=== PATIENT | male | born 1980 | race Two or more races ===

== ENCOUNTER 2016-07-29 00:11 | Emergency (ER) | payer MEDICAID ==
--- NOTE | 2016-07-29 00:41 | ED Physician Chart ---
Chief Complaint/HPI - Patient Information Date Seen:: 07/29/16 Time Seen:: 00:30 Chief Complaint:: shaking of right arm and right leg History of Present Illness:: when tried to go to sleep [place] had shaking of right arm and right leg which have now subsided. Discharged from 6 day psych hold yesterday. Has had one prior episode of right leg shaking. Allergies:: Allergies Allergy/AdvReac Type Severity Reaction Status Date / Time No Known Allergies Allergy Verified 07/16/16 06:56 Vitals:: Vital Signs - 8 hr 07/29/16 00:27 Temp 98.1 F HR 96 RR 19 BP 137/86 O2 Sat % 98 Historian:: Patient Review:: Nurse's Note Reviewed Review of Systems - Review of Systems General/Constitutional: No fever, No chills Skin: No skin lesions Head: No headache Eyes: No loss of vision ENT: No earache Neck: No neck pain Cardio Vascular: No chest pain Pulmonary: No SOB GI: No nausea, No vomiting G/U: No dysuria Musculoskeletal: No bone or joint pain Endocrine: No polyuria Psychiatric: Prior psych history Hematopoietic: No bruising Allergic/Immuno: No urticaria Neurological: No syncope Past Medical History - Past Medical History Past Medical History: Other Family History: None Social History: Smoker, No Alcohol Surgical History: None Psychiatricy History: Depression, Schizophrenia Medication: Reviewed Family Medical History - Family Member Mother History Unknown: Yes Ethnicity: Living Status: Still Living Hx Family Cancer: No Hx Family Coronary Artery Disease: No Hx Family Congestive Heart Failure: No Hx Family Hypertension: No Hx Family Stroke: No Hx Family Diabetes: No Hx Family Seizures: No Hx Family Dementia: No Hx Family AIDS: No Hx Family HIV: No Hx Family COPD: No Hx Family Hepatitis: No Hx Family Psychiatric Problems: No Hx Family Tuberculosis: No Physical Exam - Physical Examination General/Constitutional: Well-developed, well-nourished, Alert, No distress Head: Atraumatic Eyes: Lids, conjuctiva normal Skin: Nl inspection, No rash ENMT: External ears, nose nl, Nasal exam nl, Lips, teeth, gums nl, Oropharynx nl , Tonsils nl Other ENMT comments:: bilateral cerumenosis Neck: No nuchal rigidity Respiratory: Nl effort/Exclusion, Clear to Auscultation Cardio Vascular: RRR GI: No tenderness/rebounding/guarding, No organomegaly : No CVA tenderness Extremities: No tenderness or effusion Neuro/Psych: Alert/oriented, Mood normal, No focal deficits ED Septic Shock - . Is Septic Shock (SBP<90, OR Lactate>4 mmol\L) present?: No - <6hrs of presentation: Vital Signs: Vital Signs - 8 hr 07/29/16 00:27 Temp 98.1 F HR 96 RR 19 BP 137/86 O2 Sat % 98 Reassessment (Disposition) - Reassessment Reassessment Condition:: Improved - Diagnosis Diagnosis:: dystonic reaction - Aftercare/Follow up Instructions Medication Prescribed:: benadryl 50 mg #30 Sig 1 QID - Patient Disposition Discharge/Transfer:: Home Condition at Disposition:: Stable, Improved
== END 2016-07-29 01:05 | disposition home or self-care (01) ==
LOC: ER 00:11
DX: G24.02 Drug induced acute dystonia (principal); F17.200 Nicotine dependence, unspecified, uncomplicated

== ENCOUNTER 2016-07-30 10:05 | Emergency (ER) | payer MEDICAID ==
--- NOTE | 2016-07-30 10:28 | ED Physician Chart ---
Chief Complaint/HPI - Patient Information Date Seen:: 07/30/16 Time Seen:: 10:08 Chief Complaint:: paranoia History of Present Illness:: 35-year-old male with history of schizophrenia, brought in with acute, constant , moderate, paranoia since last night. Started after he does drink alcohol and smoke cigarettes. Says that exacerbated his paranoia. Has associated hearing "voices" in his head. Typically schizophrenia is controlled with Haldol intramuscular injections every monthly. Denies any suicidal thoughts or ideations. Allergies:: Allergies Allergy/AdvReac Type Severity Reaction Status Date / Time No Known Allergies Allergy Verified 07/30/16 10:19 Vitals:: Vital Signs - 8 hr 07/30/16 10:23 Temp 98.5 F HR 104 RR 18 BP 138/91 O2 Sat % 98 Historian:: Patient, EMS Review:: Nurse's Note Reviewed, EMS run form Reviewed Review of Systems - Review of Systems Other: Complete system review otherwise unremarkable except as noted in HPI. Past Medical History - Past Medical History Past Medical History: Other (schizophrenia) Family History: None Social History: Smoker, Alcohol, No Drug Use, Single Surgical History: None Psychiatricy History: Schizophrenia Medication: Reviewed Family Medical History - Family Member Mother History Unknown: Yes Ethnicity: Living Status: Still Living Hx Family Cancer: No Hx Family Coronary Artery Disease: No Hx Family Congestive Heart Failure: No Hx Family Hypertension: No Hx Family Stroke: No Hx Family Diabetes: No Hx Family Seizures: No Hx Family Dementia: No Hx Family AIDS: No Hx Family HIV: No Hx Family COPD: No Hx Family Hepatitis: No Hx Family Psychiatric Problems: No Hx Family Tuberculosis: No Physical Exam - Physical Examination Other:: INITIAL VITAL SIGNS: Reviewed by me GENERAL: Alert and interactive. No acute distress HEAD: Head is normocephalic and atraumatic EYES: EOMI. . No scleral icterus. No conjunctival injection ENT: Moist mucous membranes. NECK: Supple. No masses. Full range of motion RESPIRATORY: No tachypnea. Clear breath sounds bilaterally. No wheezing, rales, or rhonchi CV: Regular rate and rhythm. No murmurs, rubs, or gallops ABDOMEN: Soft, non-distended, non-tender. No guarding. No rebound. No masses. EXTREMITIES: No deformity. No cyanosis. No edema. SKIN: Warm and dry. No obvious rashes. NEUROLOGIC: Alert and oriented. Face is symmetric. Speech is normal. Moves all extremities equally. Motor and sensory distally intact. Labs/Radiology/EKG Results - Lab Results Results: Lab Results 07/30/16 07/30/16 07/30/16 Range/Units 10:32 10:40 10:40 WBC 14.6 H D (4.8-10.8) Th/cmm RBC 5.42 (4.30-5.70) Mil/cmm Hgb 15.2 (13.2-17.3) gm/dL Hct 44.2 (39.0-49.0) % MCV 81.6 (80-99) fl MCH 28.0 (26.0-30.0) pg MCHC Differential 34.3 (28.0-36.0) pg RDW 12.8 (11.5-20.0) % Plt Count 328 (150-400) Th/cmm MPV 7.1 fl Neutrophils % 81.1 H (40.0-80.0) % Lymphocytes % 11.8 L (20.0-50.0) % Monocytes % 6.7 (2.0-10.0) % Eosinophils % 0.2 (0.0-5.0) % Basophils % 0.2 (0.0-2.0) % Sodium 135 L (136-145) mEq/L Potassium 4.0 (3.5-5.1) mEq/L Chloride 101 (98-107) mEq/L Carbon Dioxide 26.9 (21.0-31.0) mEq/L Anion Gap 11.1 (7.0-16.0) BUN 15 (7-25) mg/dL Creatinine 0.9 (0.7-1.3) mg/dL Est GFR ( Amer) > 60.0 ml/min Est GFR (Non-Af Amer) > 60.0 ml/min BUN/Creatinine Ratio 16.7 Glucose 117 H (70-105) mg/dL Calcium 10.0 (8.6-10.3) mg/dL Triglycerides 84 (<150) mg/dL Cholesterol 173 (<200) mg/dL LDL Cholesterol Direct 116 (75-193) mg/dL HDL Cholesterol 45 (23-92) mg/dL Urine Source CLEAN C Urine Color YELLOW Urine Clarity CLEAR (CLEAR) Urine pH 7.0 Ur Specific [place] 1.025 (1.005-1.030) Urine Protein 30 H (NEGATIVE) mg/dL Urine Glucose (UA) NEGATIVE (NEGATIVE) mg/dL Urine Ketones NEGATIVE (NEGATIVE) mg/dL Urine Blood TRACE (NEGATIVE) Urine Nitrate NEGATIVE (NEGATIVE) Urine Bilirubin NEGATIVE (NEGATIVE) Urine Urobilinogen 0.2 (0.2 - 1.0) E.U./dL Ur Leukocyte Esterase NEGATIVE (NEGATIVE) Urine RBC 0-2 H (0-5) /hpf Urine WBC 0-2 (0-5) /hpf Ur Epithelial Cells RARE (FEW) /lpf Urine Bacteria FEW (NONE SEEN) /hpf Hyaline Casts 0-2 H (0-2) /lpf Urine Mucus MODERATE (FEW) /lpf Urine Sperm FEW (NONE SEEN) /hpf - Radiology Results Results: 12-lead EKG Interpretation by Roosevelt Houser MD: Normal Sinus Rhythm with ventricular rate of 89 beats per minute Normal axis Normal intervals No acute ST or T wave changes. No obvious STEMI ED Septic Shock - . Is Septic Shock (SBP<90, OR Lactate>4 mmol\\L) present?: No - <6hrs of presentation: Vital Signs: Vital Signs - 8 hr 07/30/16 10:23 Temp 98.5 F HR 104 RR 18 BP 138/91 O2 Sat % 98 Reassessment (Disposition) - Reassessment Reassessment:: The patient's blood pressure was elevated (>120/80) but appears stable without evidence of hypertensive emergency or urgency. The patient was counseled about the risks hypertension urged to pursue outpatient monitoring and therapy within a week with her primary care physician. He does have a leukocytosis with increased neutrophils however no banding. Is likely reactive. Discussed with the patient. Patient was given Zyprexa Zydis ODT. Symptoms have resolved. He claimed to have no suicidal thoughts or ideations just that he was hearing voices. He also had increased paranoia. Reassessment Condition:: Improved - Diagnosis Diagnosis:: Psychosis, NOS Pre-hypertension - Aftercare/Follow up Instructions Aftercare/Follow-Up Instructions:: Counseled pt regarding lab results/diagnosis & need follow up, Refer to Discharge Instructions - Patient Disposition Discharge/Transfer:: Home Time:: 11:51 Condition at Disposition:: Improved ED Discharge Plan - Patient Disposition Instructions: Psychosis
[2016-07-30] MEDS ORDERED: OLANZapine 5 mg Oral Disintegrating Tab PO ONE (10:32)
[2016-07-30] MEDS ORDERED: OLANZapine 5 mg Oral Disintegrating Tab ONE (10:36)
[2016-07-30 10:50] LABS: % BASOPHILS 0.2 % (0.0-2.0); % EOSINOPHILS 0.2 % (0.0-5.0); % LYMPHOCYTES 11.8 % (20.0-50.0); % MONOCYTES 6.7 % (2.0-10.0); % NEUTROPHILS 81.1 % (40.0-80.0); HEMATOCRIT 44.2 % (39.0-49.0); HEMOGLOBIN 15.2 gm/dL (13.2-17.3); MEAN CELL VOLUME 81.6 fl (80-99); MEAN CORPUSCULAR HGB CONC 34.3 pg (28.0-36.0); MEAN PLATELET VOLUME 7.1 fl; NEUTROPHILE ABSOLUTE 11.9 Th/cmm (1.8-8.0); PLATELET COUNT 328 Th/cmm (150-400); RED BLOOD COUNT 5.42 Mil/cmm (4.30-5.70); RED CELL DISTRIBUTION WIDTH 12.8 % (11.5-20.0)
[2016-07-30 10:54] LABS: WHITE BLOOD COUNT 14.6 Th/cmm (4.8-10.8)
[2016-07-30 10:55] LABS: URINE BILIRUBIN NEGATIVE (NEGATIVE); URINE BLOOD TRACE (NEGATIVE); URINE COLOR YELLOW; URINE GLUCOSE (UA) NEGATIVE (NEGATIVE); URINE KETONE NEGATIVE (NEGATIVE); URINE PROTEIN 30 mg/dL (NEGATIVE); URINE UROBILINOGEN 0.2 E.U./dL (0.2 - 1.0)
[2016-07-30 11:04] LABS: URINE BACTERIA FEW /hpf (NONE SEEN); URINE EPITHELIAL CELLS RARE /lpf (FEW); URINE HYALINE CAST 0-2 /lpf (0-2); URINE RBC 0-2 /hpf (0-5); URINE WBC 0-2 /hpf (0-5)
[2016-07-30 11:05] LABS: URINE SPERM FEW /hpf (NONE SEEN)
[2016-07-30 11:12] LABS: ANION GAP 11.1 (7.0-16.0); BUN - UREA NITROGEN 15 mg/dL (7-25); BUN/CREATININE RATIO 16.7; CARBON DIOXIDE 26.9 mEq/L (21.0-31.0); CHLORIDE 101 mEq/L (98-107); CHOLESTEROL 173 mg/dL (<200); CREATININE - SERUM 0.9 mg/dL (0.7-1.3); GLUCOSE 117 mg/dL (70-105); SODIUM SERUM 135 mEq/L (136-145); TRIGLYCERIDES 84 mg/dL (<150)
[2016-07-30 11:47] LABS: AMPHETAMINE URINE POSITIVE (NEGATIVE)
[2016-07-30 11:48] LABS: BARBITURATES URINE NEGATIVE (NEGATIVE)
[2016-08-02 04:09] LABS: HEP B CORE IGM Negative (Negative); HEP C ANTIBODY <0.1 s/co ratio (0.0-0.9)
== END 2016-07-30 12:10 | disposition home or self-care (01) ==
LOC: ER 10:05
DX: F29 Unspecified psychosis not due to a substance or known physiological condition (principal); I10 Essential (primary) hypertension; F15.10 Other stimulant abuse, uncomplicated; F17.200 Nicotine dependence, unspecified, uncomplicated
CPT/HCPCS: 36415-UA; 80048-TC; 80061-TC; 80074-90; 81001-TC; 84443-TC; 85025-TC; 86592-TC; 93005